=== PATIENT | female | born 1995 | race Caucasian/White ===

== ENCOUNTER 2024-05-11 12:42 | Emergency (ER) | payer MEDICAID ==
[~2024-05-11] VITALS: Ht 167.6 cm; Wt 53.4 kg
[2024-05-11 12:57] VITALS: BP 127/84; TEMP 97.9
[2024-05-11 13:31] LABS: BILIRUBIN,URINE NEGATIVE (Neg); CLARITY,URINE SLIGHTLY CLOUDY (Clear); COLOR,URINE YELLOW (Yellow); GLUCOSE, URINE NEGATIVE (Neg); KETONES,URINE NEGATIVE (Neg); LEUKOCYTE ESTERASE ,URINE LARGE (Neg); NITRITES, URINE NEGATIVE (Neg); OCCULT BLOOD,URINE NEGATIVE (Neg); PROTEIN,URINE NEGATIVE (Neg); URINE HCG NEGATIVE (NEG); UROBILINOGEN,URINE 0.2 E.U/dL (0.2-1.0)
[2024-05-11 13:36] LABS: UA COLLECTION TYPE CLN CATCH MIDSTREAM
[2024-05-11 13:43] LABS: BACTERIA,URINE 4+ /HPF (Neg); RBC,URINE NONE SEEN /HPF (0-2); SQUAMOUS EPITHELIAL CELL,UR MODERATE /LPF (FEW); TRICHOMONAS,URINE MOD /HPF (NEGATIVE)
[2024-05-11] MEDS: ketorolac trometh 30MG/ML vial 30 MG/ML VIAL IV ONE (13:46)
[2024-05-11] MEDS: cephalexin 250mg capsule PO ONE (14:19)
[2024-05-11 14:48] LABS: ALANINE AMINOTRANSFERASE 19 U/L (12-78); ALKALINE PHOSPHATASE 84 IU/L (46-116); ANION GAP 8 (8-16); ASPARTATE AMINO TRANSFERASE 17 U/L (10-37); BILIRUBIN,TOTAL 0.3 MG/DL (0.1-1.0); BLOOD UREA NITROGEN 5 MG/DL (7-18); BUN/CREATININE RATIO 6.6 (10.0-20.0); CALCIUM 8.8 MG/DL (8.5-10.1); CHLORIDE 103 MMOL/L (99-107); CREATININE 0.76 MG/DL (0.40-0.90); GLUCOSE 99 MG/DL (70-104); LIPASE 81 U/L (16-77); POTASSIUM 3.7 MMOL/L (3.5-5.1); SODIUM 138 MMOL/L (135-145); TOTAL CARBON DIOXIDE 26.7 MMOL/L (24-32); eCRCL 92 ML/MIN; eGFR 90 ML/MIN
[2024-05-11 14:49] LABS: BASOPHILS # (AUTO) 0.1 X10'3 (0-0.2); BASOPHILS % (AUTO) 1.2 % (0-1); EOSINOPHILS # (AUTO) 0.2 X10'3 (0-0.9); EOSINOPHILS % (AUTO) 2.8 % (0-6); HEMATOCRIT 28.5 % (35.0-45.0); HEMOGLOBIN 8.3 g/dl (12.0-16.0); LYMPHOCYTES # (AUTO) 2.2 X10'3 (1.1-4.8); MEAN CORPUSCULAR HEMOGLOBIN 16.9 PG (27.0-31.0); MEAN CORPUSCULAR HGB CONC 29.3 g/dL (33.0-36.5); MEAN CORPUSCULAR VOLUME 57.8 FL (78-98); MEAN PLATELET VOLUME 8.6 FL (7.4-10.4); MONOCYTES # (AUTO) 0.6 X10'3 (0-0.9); MONOCYTES % (AUTO) 7.7 % (2-12); NEUTROPHILS # (AUTO) 5.2 X10'3 (1.8-7.7); NEUTROPHILS % (AUTO) 62.3 % (42-75); PLATELET COUNT 467 X10'3 (140-440); RED BLOOD COUNT 4.93 X10'6 (4.20-5.60); RED CELL DISTRIBUTION WIDTH 19.6 % (11.5-14.5); WHITE BLOOD COUNT 8.3 X10'3 (4.5-11.0)
[2024-05-11 15:04] LABS: ANISOCYTOSIS 2+; HYPOCHROMASIA 1+; MICROCYTOSIS 3+; PLATELET ESTIMATE INCREASED
[2024-05-11 15:05] LABS: ELLIPTOCYTES FEW; POIKILOCYTOSIS 1+; TARGET CELLS FEW
[2024-05-11] MEDS ORDERED: CEPH-585 PO (15:39)
[2024-05-11] MEDS ORDERED: IRON15TA3 PO (15:42)
[2024-05-11 15:59] VITALS: PULSE 95; RESP 16; O2SAT 98
== END 2024-05-11 16:03 | disposition home or self-care (01) ==
LOC: ER 12:43
DX: N39.0 Urinary tract infection, site not specified (principal); D64.9 Anemia, unspecified; R10.11 Right upper quadrant pain; Z79.2 Long term (current) use of antibiotics; Z79.899 Other long term (current) drug therapy
CPT/HCPCS: 36415; 80053; 81001; 81025; 83690; 85008; 85025; 87077; 87088; 87186; 96374; 99283; J1885

== ENCOUNTER 2024-05-25 15:24 | Emergency (ER) | payer MEDICAID ==
[~2024-05-25] VITALS: Ht 175.3 cm; Wt 54.6 kg
[~2024-05-25 15:24] MED LIST: IRON15TA3 PO
[2024-05-25 15:30] VITALS: TEMP 97.6
[2024-05-25 16:00] VITALS: BP 134/86; PULSE 91; RESP 16; O2SAT 100
== END 2024-05-25 16:24 | disposition home or self-care (01) ==
LOC: ER 15:24
DX: R10.11 Right upper quadrant pain (principal); F15.90 Other stimulant use, unspecified, uncomplicated; Z79.899 Other long term (current) drug therapy
CPT/HCPCS: 99283

== ENCOUNTER 2024-05-27 23:14 | Inpatient (IN) | payer MEDICAID ==
[~2024-05-27] VITALS: Ht 170.2 cm; Wt 42.1 kg
[2024-05-27 23:53] LABS: BASOPHILS % (AUTO) 0.3 % (0-1); EOSINOPHILS % (AUTO) 0 % (0-6); MONOCYTES # (AUTO) 0.7 X10'3 (0-0.9)
[2024-05-27 23:55] LABS: LYMPHOCYTES % (AUTO) 14.5 % (21-51); MEAN PLATELET VOLUME 8.5 FL (7.4-10.4); NEUTROPHILS # (AUTO) 5.2 X10'3 (1.8-7.7); NEUTROPHILS % (AUTO) 75.2 % (42-75); PLATELET COUNT 485 X10'3 (140-440); WHITE BLOOD COUNT 6.9 X10'3 (4.5-11.0)
[2024-05-28] VITALS (7 sets, daily range): BP systolic 103–116; BP diastolic 56–68; PULSE 76–114; RESP 15–76; TEMP 98.1–100; O2SAT 98–100
[2024-05-28] MEDS: acetaminophen 1,000mg/100ml IV 100 ML IV ONE (00:02)
[2024-05-28] MEDS: normal saline 1000ml 1,000 ML IV ONE (00:03)
[2024-05-28] MEDS: ondansetron/PF 4mg/2ml inj IV ONE (00:06)
[2024-05-28 00:07] LABS: ALANINE AMINOTRANSFERASE 47 U/L (12-78); ALBUMIN 4.1 G/DL (3.4-5.0); ALBUMIN/GLOBULIN RATIO 0.7 (1.1-1.5); ALKALINE PHOSPHATASE 99 IU/L (46-116); ANION GAP 20 (8-16); ASPARTATE AMINO TRANSFERASE 27 U/L (10-37); BILIRUBIN,TOTAL 0.4 MG/DL (0.1-1.0); BLOOD UREA NITROGEN 29 MG/DL (7-18); BUN/CREATININE RATIO 13.2 (10.0-20.0); CALCIUM 9.4 MG/DL (8.5-10.1); CHLORIDE 89 MMOL/L (99-107); CREATININE 2.19 MG/DL (0.40-0.90); GLUCOSE 156 MG/DL (70-104); LIPASE 23 U/L (16-77); SODIUM 126 MMOL/L (135-145); TOTAL PROTEIN 9.8 G/DL (6.4-8.2); eCRCL 25 ML/MIN; eGFR 27 ML/MIN
[2024-05-28 00:24] LABS: HEMATOCRIT 34.6 % (35.0-45.0); HEMOGLOBIN 11.2 g/dl (12.0-16.0); MEAN CORPUSCULAR HEMOGLOBIN 17.3 PG (27.0-31.0); MEAN CORPUSCULAR HGB CONC 32.4 g/dL (33.0-36.5); MEAN CORPUSCULAR VOLUME 53.3 FL (78-98)
[2024-05-28 00:49] LABS: ANISOCYTOSIS 2+; BURR CELLS 2+; ELLIPTOCYTES 1+; HYPOCHROMASIA 1+; MICROCYTOSIS 3+; PLATELET ESTIMATE INCREASED; POIKILOCYTOSIS 1+; SCHISTOCYTES FEW; TARGET CELLS FEW
[2024-05-28] MEDS: potassium Cl 20 mEq SR tablet PO STA (01:05)
[2024-05-28] MEDS: potassium Cl 40MEQ/1/2NS 520ml 520 ML IV SCH (01:30)
[2024-05-28] MEDS ORDERED: potassium Cl 40MEQ/1/2NS 520ml 520 ML IV PRN (01:35)
[2024-05-28] MEDS ORDERED: normal saline 1000ml 1,000 ML IV SCH (01:35)
[2024-05-28] MEDS ORDERED: magnesium Cl slow-release 64mg tablet PO PRN (01:35)
[2024-05-28] MEDS ORDERED: magnesium hydroxide 30ml (MOM) UD suspension PO PRN (01:35)
[2024-05-28] MEDS ORDERED: magnesium sulf-water 4G/100mL 100 ML IV PRN (01:35)
[2024-05-28] MEDS ORDERED: magnesium sulf-water 2g/50mL 50 ML IV PRN (01:35)
[2024-05-28 02:10] LABS: OSMOLALITY 286 MOSM/K (280-300)
[2024-05-28 02:13] LABS: MAGNESIUM 1.8 MG/DL (1.5-2.4); PHOSPHORUS 6.1 MG/DL (2.3-4.5)
[2024-05-28] MEDS ORDERED: sodium bicarbonate 1meq/ml inj 150 ML in sodium chloride 0.45% 1,000 ML IV SCH (02:15)
[2024-05-28 02:22] LABS: HEMOGLOBIN A1C 5.6 % (4.5-6.2)
[2024-05-28] MEDS: ringers solution, lacted 1,000 ML IV ONE (02:43)
[2024-05-28] MEDS: sodium bicarbonate 1meq/ml inj 150 ML in dextrose 5%-water 1,000 ML IV SCH (04:45)
[2024-05-28 06:32] LABS: ALBUMIN 2.8 G/DL (3.4-5.0); ANION GAP 16 (8-16); BLOOD UREA NITROGEN 24 MG/DL (7-18); BUN/CREATININE RATIO 17.4 (10.0-20.0); CHLORIDE 98 MMOL/L (99-107); CREATININE 1.38 MG/DL (0.40-0.90); GLUCOSE 112 MG/DL (70-104); SODIUM 132 MMOL/L (135-145); eCRCL 40 ML/MIN; eGFR 45 ML/MIN
[2024-05-28] MEDS: K and/or MAG REPLACEMENT MC SCH (08:30)
[2024-05-28] MEDS: heparin, porcine 5000 units/ml vial SQ SCH (08:49)
[2024-05-28] MEDS: ondansetron/PF 4mg/2ml inj IV PRN (09:31)
[2024-05-28] MEDS: acetaminophen 325mg tablet PO PRN (11:08)
[2024-05-28] MEDS ORDERED: QUET25TA PO (13:06)
[2024-05-28] MEDS ORDERED: CEPHALEXIN (13:10)
[2024-05-28] MEDS ORDERED: FLUO-331 (13:10)
[2024-05-28] MEDS ORDERED: BUPR-561 PO (13:10)
[2024-05-28] MEDS ORDERED: QUET50TA24 PO (13:10)
[2024-05-28] MEDS ORDERED: CEPH-585 (13:10)
[2024-05-28] MEDS: HYDROcodone/acetaminophen 5mg/325mg tablet PO PRN (13:45)
[2024-05-28 14:17] LABS: ALBUMIN 2.8 G/DL (3.4-5.0); ANION GAP 8 (8-16); BLOOD UREA NITROGEN 14 MG/DL (7-18); BUN/CREATININE RATIO 15.1 (10.0-20.0); CALCIUM 8.3 MG/DL (8.5-10.1); CHLORIDE 99 MMOL/L (99-107); CREATININE 0.93 MG/DL (0.40-0.90); GLUCOSE 103 MG/DL (70-104); POTASSIUM 4.1 MMOL/L (3.5-5.1); SODIUM 130 MMOL/L (135-145); TOTAL CARBON DIOXIDE 23.2 MMOL/L (24-32); eCRCL 59 ML/MIN; eGFR 71 ML/MIN
[2024-05-28 14:30] LABS: C DIFF ANTIGEN NEGATIVE (NEGATIVE); C DIFF SPECIMEN=DIARRHEA? ACCEPTABLE; C DIFFICILE TOXINS A&B NEGATIVE (Neg)
[2024-05-28 17:26] LABS: ALBUMIN 2.9 G/DL (3.4-5.0); ANION GAP 9 (8-16); BLOOD UREA NITROGEN 11 MG/DL (7-18); BUN/CREATININE RATIO 13.9 (10.0-20.0); CALCIUM 8.6 MG/DL (8.5-10.1); CHLORIDE 99 MMOL/L (99-107); CREATININE 0.79 MG/DL (0.40-0.90); GLUCOSE 101 MG/DL (70-104); POTASSIUM 3.8 MMOL/L (3.5-5.1); SODIUM 131 MMOL/L (135-145); TOTAL CARBON DIOXIDE 23.3 MMOL/L (24-32); eCRCL 70 ML/MIN; eGFR 86 ML/MIN
[2024-05-28] MEDS ORDERED: NIRMATRELVIR/RITONAVIR 300/100mg - 1 EACH TAB.DS.PK PO SCH (20:00)
[2024-05-28] MEDS: ciprofloxacin lact 400MG/200ML 200 ML IV SCH (20:42)
[2024-05-29] MEDS: ondansetron 4mg rapidly disintigrating tab PO ONE (01:53)
[2024-05-29 06:13] LABS: BASOPHILS % (AUTO) 0.2 % (0-1); EOSINOPHILS % (AUTO) 0.2 % (0-6); LYMPHOCYTES # (AUTO) 1.2 X10'3 (1.1-4.8); LYMPHOCYTES % (AUTO) 19.9 % (21-51); MEAN PLATELET VOLUME 9.2 FL (7.4-10.4); MONOCYTES # (AUTO) 0.5 X10'3 (0-0.9); MONOCYTES % (AUTO) 8.9 % (2-12); NEUTROPHILS # (AUTO) 4.2 X10'3 (1.8-7.7); NEUTROPHILS % (AUTO) 70.8 % (42-75); PLATELET COUNT 400 X10'3 (140-440); RED BLOOD COUNT 5.54 X10'6 (4.20-5.60); RED CELL DISTRIBUTION WIDTH 21.1 % (11.5-14.5)
[2024-05-29 06:22] LABS: ALBUMIN 3.1 G/DL (3.4-5.0); ANION GAP 10 (8-16); BLOOD UREA NITROGEN 8 MG/DL (7-18); BUN/CREATININE RATIO 9.9 (10.0-20.0); CALCIUM 9.1 MG/DL (8.5-10.1); CHLORIDE 98 MMOL/L (99-107); CHOL/HDL RATIO 3.6 (0.00-4.99); CHOLESTEROL 68 MG/DL (0-200); CREATININE 0.81 MG/DL (0.40-0.90); GLUCOSE 105 MG/DL (70-104); HDL CHOLESTEROL 19 MG/DL (35-60); LDL CHOLESTEROL 32 MG/DL (50-100); POTASSIUM 3.2 MMOL/L (3.5-5.1); SODIUM 129 MMOL/L (135-145); TOTAL CARBON DIOXIDE 20.8 MMOL/L (24-32); TRIGLYCERIDES 97 MG/DL (20-135); eCRCL 68 ML/MIN; eGFR 84 ML/MIN
[2024-05-29 06:48] LABS: HEMATOCRIT 30.2 % (35.0-45.0); HEMOGLOBIN 9.7 g/dl (12.0-16.0); MEAN CORPUSCULAR HEMOGLOBIN 17.3 PG (27.0-31.0); MEAN CORPUSCULAR VOLUME 53.9 FL (78-98)
[2024-05-29 07:13] VITALS: BP 122/76; PULSE 122; RESP 20; TEMP 98.4; O2SAT 100
[2024-05-29 07:59] VITALS: RESP 20; O2SAT 100
[2024-05-29] MEDS: potassium Cl 20 mEq SR tablet PO PRN (08:12)
[2024-05-29 08:24] LABS: ANISOCYTOSIS 3+; PLATELET ESTIMATE NORMAL
[2024-05-29 08:25] LABS: ELLIPTOCYTES 1+; MICROCYTOSIS 3+
[2024-05-29 08:26] LABS: TEAR DROP CELLS FEW
[2024-05-29 08:27] LABS: HYPOCHROMASIA 1+
[2024-05-29] MEDS: normal saline 1000ml 1,000 ML IV SCH (09:48)
[2024-05-29 11:49] VITALS: PULSE 104; RESP 15; TEMP 98
[2024-05-29 12:02] LABS: HIV ANTIBODY 1&2 RAPID NON-REACTIVE (Neg)
[2024-05-29 15:32] LABS: URINE HCG NEGATIVE (NEG)
[2024-05-29 15:33] LABS: BILIRUBIN,URINE NEGATIVE (Neg); CLARITY,URINE SLIGHTLY CLOUDY (Clear); COLOR,URINE YELLOW (Yellow); GLUCOSE, URINE NEGATIVE (Neg); KETONES,URINE NEGATIVE (Neg); LEUKOCYTE ESTERASE ,URINE TRACE (Neg); NITRITES, URINE NEGATIVE (Neg); OCCULT BLOOD,URINE SMALL (Neg); PROTEIN,URINE NEGATIVE (Neg); SODIUM,URINE RANDOM < 15 MEQ/L; UROBILINOGEN,URINE 0.2 E.U/dL (0.2-1.0)
[2024-05-29 15:40] LABS: URINE AMPHETAMINE SCREEN NEGATIVE (Neg); URINE BARBITUATE SCREEN NEGATIVE (Neg); URINE BENZODIAZEPINES SCREEN NEGATIVE (Neg); URINE CANNABINOID SCREEN NEGATIVE (Neg); URINE COCAINE SCREEN NEGATIVE (Neg); URINE METHADONE SCREEN NEGATIVE (Neg); URINE OPIATE SCREEN POSITIVE (Neg); URINE PHENCYCLIDINE SCREEN NEGATIVE (Neg)
[2024-05-29 15:54] LABS: SQUAMOUS EPITHELIAL CELL,UR FEW /LPF (FEW); UA COLLECTION TYPE NON-SPECIFIED
[2024-05-29 15:55] LABS: MUCUS STRANDS FEW /LPF (Neg); TRANSITIONAL EPI CELLS,URINE FEW /HPF
[2024-05-29 15:56] LABS: BACTERIA,URINE FEW /HPF (Neg)
[2024-05-29 16:14] LABS: OSMOLALITY UA 126 MOSM/K (50-1400)
[2024-05-29 16:21] LABS: FERRITIN 42 NG/ML (8-252)
[2024-05-29 16:22] LABS: UA EOSINOPHILS NO EOS /HPF
[2024-05-29 17:19] LABS: % IRON SATURATION 5 % (11-46); IRON 16 UG/DL (49-151); TOTAL IRON BINDING CAPACITY 338 UG/DL (259-388)
[2024-05-29 18:00] VITALS: BP 111/70; PULSE 83; RESP 20; TEMP 97.6; O2SAT 95
[2024-05-29] MEDS: lactose-reduced food (Ensure Enlive) - 237ml bottle PO SCH (18:03)
[2024-05-29 20:00] VITALS: RESP 16; O2SAT 99
[2024-05-29] MEDS ORDERED: ferrous sulfate ER tablet 140 MG TABLET.ER PO SCH (20:00)
[2024-05-29 22:00] VITALS: BP 138/82; PULSE 102; RESP 17; TEMP 97.9; O2SAT 100
[2024-05-29] MEDS ORDERED: FERROUS SULFATE 142 MG TABLET.ER (45mg elemental) PO SCH (22:09)
[2024-05-30] VITALS (7 sets, daily range): BP systolic 114–128; BP diastolic 60–79; PULSE 64–90; RESP 16–20; TEMP 97.2–98.5; O2SAT 93–99
[2024-05-30] MEDS: BUPROPION HCL 150MG XL 24 HR 150 MG TAB PO SCH (08:40)
[2024-05-30 09:24] LABS: EOSINOPHILS # (AUTO) 0.1 X10'3 (0-0.9); EOSINOPHILS % (AUTO) 1.2 % (0-6); HEMOGLOBIN 9.5 g/dl (12.0-16.0); LYMPHOCYTES # (AUTO) 1.6 X10'3 (1.1-4.8); NEUTROPHILS # (AUTO) 2.9 X10'3 (1.8-7.7); WHITE BLOOD COUNT 5.2 X10'3 (4.5-11.0)
[2024-05-30 09:26] LABS: BASOPHILS % (AUTO) 0.3 % (0-1); HEMATOCRIT 32.9 % (35.0-45.0); MEAN CORPUSCULAR HEMOGLOBIN 16.5 PG (27.0-31.0); MEAN CORPUSCULAR HGB CONC 28.9 g/dL (33.0-36.5); MEAN CORPUSCULAR VOLUME 57.2 FL (78-98); MEAN PLATELET VOLUME 9.1 FL (7.4-10.4); MONOCYTES # (AUTO) 0.7 X10'3 (0-0.9); MONOCYTES % (AUTO) 12.5 % (2-12); PLATELET COUNT 437 X10'3 (140-440); RED BLOOD COUNT 5.76 X10'6 (4.20-5.60); RED CELL DISTRIBUTION WIDTH 21.7 % (11.5-14.5)
[2024-05-30 09:35] LABS: ALBUMIN 3.1 G/DL (3.4-5.0); ANION GAP 11 (8-16); BLOOD UREA NITROGEN 7 MG/DL (7-18); BUN/CREATININE RATIO 8.2 (10.0-20.0); CALCIUM 9.1 MG/DL (8.5-10.1); CHLORIDE 99 MMOL/L (99-107); CREATININE 0.85 MG/DL (0.40-0.90); GLUCOSE 112 MG/DL (70-104); SODIUM 130 MMOL/L (135-145); TOTAL CARBON DIOXIDE 20.4 MMOL/L (24-32); eCRCL 65 ML/MIN; eGFR 79 ML/MIN
[2024-05-30 09:52] LABS: ANISOCYTOSIS 3+; BURR CELLS 1+; ELLIPTOCYTES FEW; MICROCYTOSIS 3+; PLATELET ESTIMATE NORMAL; SCHISTOCYTES FEW
[2024-05-30 09:53] LABS: ACANTHOCYTES FEW; HYPOCHROMASIA 1+; TARGET CELLS FEW
[2024-05-30] MEDS: potassium Cl 20 mEq SR tablet PO PRN (10:07)
[2024-05-30] MEDS: mag hydrox/Alum hydrox/simeth 30ml oral suspension PO SCH (11:50)
[2024-05-30] MEDS: mag hydrox/Alum hydrox/simeth 30ml oral suspension PO PRN (17:16)
[2024-05-30] MEDS ORDERED: QUEtiapine 25mg tablet PO SCH (21:00)
[2024-05-30] MEDS: FERROUS SULFATE 142 MG TABLET.ER (45mg elemental) PO SCH (21:01)
[2024-05-30] MEDS: QUEtiapine 25mg tablet PO SCH (21:02)
[2024-05-31] MEDS: ciprofloxacin 250mg tablet PO SCH (01:15)
[2024-05-31 03:00] VITALS: BP 100/57; PULSE 87; RESP 18; TEMP 98.7; O2SAT 92
[2024-05-31 05:21] LABS: HBSAG SCREEN Negative (Negative); HEP B CORE AB, IGM Negative (Negative); HEP B CORE AB, TOT Negative (Negative)
[2024-05-31 07:00] VITALS: BP 116/75; PULSE 104; RESP 18; TEMP 98; O2SAT 97
[2024-05-31 07:30] LABS: ALBUMIN 3.2 G/DL (3.4-5.0); ANION GAP 12 (8-16); BLOOD UREA NITROGEN 8 MG/DL (7-18); CALCIUM 9.6 MG/DL (8.5-10.1); CHLORIDE 102 MMOL/L (99-107); CREATININE 0.89 MG/DL (0.40-0.90); GLUCOSE 100 MG/DL (70-104); POTASSIUM 4.3 MMOL/L (3.5-5.1); SODIUM 134 MMOL/L (135-145); TOTAL CARBON DIOXIDE 20.4 MMOL/L (24-32); eCRCL 62 ML/MIN; eGFR 75 ML/MIN
[2024-05-31 07:41] LABS: BASOPHILS # (AUTO) 0.1 X10'3 (0-0.2); BASOPHILS % (AUTO) 0.7 % (0-1); EOSINOPHILS # (AUTO) 0.1 X10'3 (0-0.9); EOSINOPHILS % (AUTO) 1.1 % (0-6); LYMPHOCYTES # (AUTO) 2.1 X10'3 (1.1-4.8); LYMPHOCYTES % (AUTO) 27.9 % (21-51); MEAN PLATELET VOLUME 8.6 FL (7.4-10.4); MONOCYTES % (AUTO) 13.8 % (2-12); NEUTROPHILS # (AUTO) 4.1 X10'3 (1.8-7.7); NEUTROPHILS % (AUTO) 56.5 % (42-75); PLATELET COUNT 560 X10'3 (140-440); WHITE BLOOD COUNT 7.3 X10'3 (4.5-11.0)
[2024-05-31 07:54] LABS: HEMATOCRIT 32.8 % (35.0-45.0); HEMOGLOBIN 10.5 g/dl (12.0-16.0); MEAN CORPUSCULAR HEMOGLOBIN 17.4 PG (27.0-31.0); MEAN CORPUSCULAR HGB CONC 31.9 g/dL (33.0-36.5); MEAN CORPUSCULAR VOLUME 54.5 FL (78-98); RED BLOOD COUNT 6.02 X10'6 (4.20-5.60)
[2024-05-31 08:00] VITALS: RESP 18; O2SAT 98
[2024-05-31] MEDS ORDERED: FERR142T13 PO (11:45)
[2024-05-31] MEDS ORDERED: CIPR-259 PO (11:45)
== END 2024-05-31 15:00 | disposition home or self-care (01) | DRG 720 ==
LOC: ER 23:15 → ED HOLD 05-28 01:36 → EDBEDREQ 05-28 06:41 → PCU 3S 05-28 07:15
PROVIDERS: ADMIT Internal Medicine Critical Care Medicine; ATTEND Internal Medicine
PROC: 05HB33Z Insertion of Infusion Device into Right Basilic Vein, Percutaneous Approach (ICD-10-PCS; principal; 2024-05-30)
DX: A02.1 Salmonella sepsis (principal); N17.0 Acute kidney failure with tubular necrosis; U07.1 COVID-19; E43 Unspecified severe protein-calorie malnutrition; E87.1 Hypo-osmolality and hyponatremia; A02.0 Salmonella enteritis; D50.8 Other iron deficiency anemias; F15.90 Other stimulant use, unspecified, uncomplicated; E86.0 Dehydration; E87.6 Hypokalemia; F19.10 Other psychoactive substance abuse, uncomplicated; Z68.1 Body mass index [BMI] 19.9 or less, adult
CPT/HCPCS: 36410; 36415; 71045; 74176; 76937; 80048; 80053; 80061; 80305; 81001; 81025; 82728; 82800; 83036; 83540; 83550; 83605; 83690; 83735; 83930; 83935; 84100; 84300; 84466; 85008; 85025; 86703; 86704; 86705; 86706; 87040; 87077; 87081; 87088; 87186; 87207; 87324; 87340; 87449; 93306; 99285; C1751; G0378; J0131; J0744; J1644; J2405; J3480; J3490; J7030; J7040; J7070; J7120

== ENCOUNTER 2024-06-14 14:43 | Emergency (ER) | payer MEDICAID ==
[~2024-06-14] VITALS: Ht 170.2 cm; Wt 50.0 kg
[~2024-06-14 14:43] MED LIST changes: +BUPR-561 PO; +CEPHALEXIN; +FERR142T13 PO; +FLUO-331; -IRON15TA3 PO; +QUET25TA PO; +QUET50TA24 PO
[2024-06-14 14:44] VITALS: BP 117/73; PULSE 92; RESP 16; TEMP 97.7; O2SAT 100
[2024-06-14 15:34] LABS: BASOPHILS # (AUTO) 0.1 X10'3 (0-0.2); EOSINOPHILS # (AUTO) 0.1 X10'3 (0-0.9); HEMOGLOBIN 8.8 g/dl (12.0-16.0); MEAN CORPUSCULAR VOLUME 59.4 FL (78-98); NEUTROPHILS # (AUTO) 6.2 X10'3 (1.8-7.7)
[2024-06-14 15:35] LABS: BASOPHILS % (AUTO) 0.8 % (0-1); EOSINOPHILS % (AUTO) 0.9 % (0-6); HEMATOCRIT 30.6 % (35.0-45.0); LYMPHOCYTES % (AUTO) 21.5 % (21-51); MEAN CORPUSCULAR HEMOGLOBIN 17.2 PG (27.0-31.0); MEAN CORPUSCULAR HGB CONC 28.9 g/dL (33.0-36.5); MEAN PLATELET VOLUME 8.3 FL (7.4-10.4); MONOCYTES # (AUTO) 0.8 X10'3 (0-0.9); MONOCYTES % (AUTO) 9.2 % (2-12); NEUTROPHILS % (AUTO) 67.6 % (42-75); PLATELET COUNT 673 X10'3 (140-440); RED BLOOD COUNT 5.14 X10'6 (4.20-5.60); RED CELL DISTRIBUTION WIDTH 22.7 % (11.5-14.5); WHITE BLOOD COUNT 9.1 X10'3 (4.5-11.0)
[2024-06-14 15:56] LABS: PLATELET ESTIMATE INCREASED
[2024-06-14 15:57] LABS: ALANINE AMINOTRANSFERASE 16 U/L (12-78); ALBUMIN 3.6 G/DL (3.4-5.0); ALBUMIN/GLOBULIN RATIO 0.8 (1.1-1.5); ALKALINE PHOSPHATASE 86 IU/L (46-116); ANION GAP 7 (8-16); ASPARTATE AMINO TRANSFERASE 15 U/L (10-37); BILIRUBIN,TOTAL 0.4 MG/DL (0.1-1.0); BLOOD UREA NITROGEN 10 MG/DL (7-18); CALCIUM 9.1 MG/DL (8.5-10.1); CHLORIDE 103 MMOL/L (99-107); CREATININE 0.83 MG/DL (0.40-0.90); GLUCOSE 94 MG/DL (70-104); LARGE PLATELETS FEW; LIPASE 53 U/L (16-77); SODIUM 138 MMOL/L (135-145); TOTAL CARBON DIOXIDE 28.3 MMOL/L (24-32); eCRCL 79 ML/MIN; eGFR 81 ML/MIN
[2024-06-14 15:58] LABS: ANISOCYTOSIS 3+; ELLIPTOCYTES 1+; HYPOCHROMASIA 3+; MICROCYTOSIS 3+; ROULEAUX 1+; SCHISTOCYTES FEW; TEAR DROP CELLS FEW
[2024-06-14 15:59] LABS: BURR CELLS 1+
== END 2024-06-14 17:42 | disposition left against medical advice (07) ==
LOC: ER 14:44
DX: R10.13 Epigastric pain (principal); Z53.21 Procedure and treatment not carried out due to patient leaving prior to being seen by health care provider
CPT/HCPCS: 36415; 80053; 83690; 85008; 85025